=== PATIENT | male | born 1950 | race Caucasian/White ===

== ENCOUNTER 2017-12-08 19:00 | Inpatient (IN) | payer MEDICARE, OTHER ==
[~2017-12-08] VITALS: Ht 170.2 cm; Wt 73.0 kg
[~2017-12-08 19:00] MED LIST: AZITHROMYCIN 2250 MG PO; CEFPODOXIME PR200 M1 PO; CEFTIN 250 MG250 MG PO; CIPRO500 MG PO; CITRUCEL CAPLET1 TA1 PO; FLEXERIL PO; PREDNISONE 10 M10 MG PO; PROTONIX40 M1 PO; PROVENTIL HFA6.7 G1 INH; REGLAN 5 MG TAB5 MG PO; ROXICODONE5 M2 PO; SPIRIVA INH; VENTOLIN HFA 1818 GM INH; ZOFRAN ODT4 MG DISSOLVE
[2017-12-08 19:05] VITALS: BP 136/76
[2017-12-08] MEDS ORDERED: IBUPROFEN 200200 M1 PO (19:12)
[2017-12-08] MEDS ORDERED: CLARITIN10 MG PO (19:12)
[2017-12-08 19:54] LABS: INFLUENZA A ANTIGEN None Detected (None Detect); INFLUENZA B ANTIGEN None Detected (None Detect)
[2017-12-08 20:05] LABS: ABSOLUTE EOSINOPHILS 0.1 thou/uL (0.0-0.7); ABSOLUTE LYMPHOCYTES 1.4 thou/uL (0.8-5.3); ABSOLUTE MONOCYTES 1.5 thou/uL (0.0-1.2); ABSOLUTE NEUTROPHILS 10.2 thou/uL (1.6-8.1); BASOPHILS 0.3 %; HEMATOCRIT 43.7 % (42.0-52.0); LYMPHOCYTES 10.3 %; MCH 33.5 pg (26.0-34.0); MCHC 34.4 g/dL (28.0-37.0); MCV 97.5 fL (80.0-100.0); MONOCYTES 11.6 %; MPV 8.6 fl. (7.2-11.1); NUCLEATED RBCS 0 /100WBC; PLATELET COUNT* 246 thou/uL (150-400); POLYS 76.8 %; RBC 4.48 mil/uL (4.50-6.00); RDW-CV 14.7 % (10.5-14.5); WBC 13.3 thou/uL (4.0-11.0)
[2017-12-08 20:21] LABS: CREATININE 0.8 mg/dL (0.6-1.3); POTASSIUM 3.5 mmol/L (3.5-5.1)
[2017-12-08 20:28] LABS: ALBUMIN 2.4 g/dL (3.4-5.0); TOTAL BILIRUBIN 0.7 mg/dL (<0.1-1.0); TOTAL PROTEIN 6.8 g/dL (6.4-8.2)
[2017-12-08 20:32] LABS: TROPONIN-I LEVEL 0.64 ng/mL (<0.06)
[2017-12-08 23:13] VITALS: BP 126/79
[2017-12-09 00:30] VITALS: BP 134/83
--- NOTE | 2017-12-09 05:02 | NUR ---
PT TO FLOOR AT 2330. A&O X4 CALM COOPERITVE. SR ON THE MONITOR. DENIES PAIN. 3L O2. ADLIB IN ROOM. VITALS WNL. HOURLY ROUNDING FOR SAFETY.
[2017-12-09 10:00] VITALS: BP 118/78
[2017-12-09 11:20] VITALS: BP 117/74
--- NOTE | 2017-12-09 12:40 | NUR ---
ASSUMED PT CARE AT 0700 PT IS ALERT AND ORIENTED X 4 PT IS UP AD TOMMY PT IS NOT A FALL RISK, PT DENIES PAIN OR SOA, PT IS NPO FOR STRESS TEST [facility] CALLED AND STATED PT CAN HAVE LIGHT BREAKFAST BEFORE 1000 WHICH DIETARY BROUGHT TO PT AND PT WAS EDUCATED THAT HE COULD EAT BREAKFAST AND AFTER BREAKFAST COULD NOT EAT OR DRINK ANYTHING FOR STRESS TEST PT STATES UNDERSTANDING, TRAY WAS PROVIDED BY DIETARY TO PT EVEN THOUGH NPO SIGN ON DOOR PT ATE AND DRANK ICED TEA THIS NURSE WALKED IN ON PT EATING AND STOPPED PT EATING FURTHER UNTIL THIS NURSE TALKED WITH NUCLEAR MEDICINE THIS NURSE SPOKE WITH NUCLEAR MEDICINE WHO STATES THAT PT CAN DO RESTING IMAGES BUT STRESS PORTION WILL BE TOMORROW THIS NURSE NOTIFIED PT WHO STATES UNDERSTANDING PT CAN CONTINUE TO EAT NO NITRATES BETA BLOCKERS OR CAFFINE BE GIVEN UNTIL AFTER STRESS TEST TOMORROW, WILL CONTINUE TO MONITOR
--- NOTE | 2017-12-09 15:07 | 2DMMODE ---
[place] [address] 2 D/M-MODE ECHOCARDIOGRAM Name: TOM CORNEJO Room: [address] IN [facility]#: [id number] Admission: 12/08/17 Attend Phys: Sylvia Holguin, Discharge: Date of : 50 Date of Service: 12/09/17 1507 Report #: [id number] THIS REPORT FOR: //name// APPROVED REPORT Study performed: 12/09/2017 10:31:40 EXAM: Comprehensive 2D, Doppler, and color-flow Echocardiogram Patient Location: In-Patient Room #: 218 Status: routine BSA: 1.83 HR: 94 bpm BP: 134/83 mmHg Rhythm: NSR Other Information Study Quality: Good Indications Dyspnea Elevated Troponin 2D Dimensions LVEF(%): 78.48 (>50%) IVSd: 10.64 (7-11mm) LVOT Diam: 22.34 (18-24mm) LVDd: 41.53 mm PWd: 7.60 (7-11mm) Ascending Ao: 31.20 (22-36mm) LVDs: 22.14 (25-40mm) Aortic Root: 34.78 mm Brenner's LVEF: 78.48 % Volumes Left Atrial Volume (Systole) LA ESV Index: 28.00 mL/m2 Aortic Valve AoV Peak Cayden.: 1.25 m/s AO Peak Gr.: 6.22 mmHg LVOT Max P.46 mmHg AO Mean Gr.: 3.83 mmHg LVOT Mean P.16 mmHg LVOT Max V: 1.06 m/s AO V2 VTI: 21.93 cm LVOT Mean V: 0.68 m/s JAVIER (VTI): 3.20 cm2 LVOT V1 VTI: 17.94 [place] [address] 2 D/M-MODE ECHOCARDIOGRAM Name: TOM CORNEJO Room: [address] IN .R.#: [id number] Admission: 12/08/17 Attend Phys: Sylvia Holguin, Discharge: Date of : 50 Date of Service: 12/09/17 1507 Report #: [id number] E/A Ratio: 1.14 MV Decel. Time: 236.20 ms MV E Max Cayden.: 0.78 m/s MV PHT: 68.50 ms MVA (PHT): 3.21 cm2 TDI E/Lateral E': 8.67 E/Medial E': 7.09 Medial E' Cayden.: 0.11 m/s Lateral E' Cayden.: 0.09 m/s Pulmonary Valve PV Peak Cayden.: 0.88 m/s PV Peak Gr.: 3.10 mmHg Tricuspid Valve TR Peak Gr.: 36.36 mmHg RVSP: 41.00 mmHg Left Ventricle The left ventricle is normal size. There is normal LV segmental wall motion. There is normal left ventricular wall thickness. Left ventricular systolic function is normal. The left ventricular ejection fraction is within the normal range. LVEF is 60-65%. The left ventricular diastolic function is normal. Right Ventricle The right ventricle is normal size. The right ventricular systolic function is normal. Atria The left atrium size is normal. The right atrium size is normal. Aortic Valve The aortic valve is normal in structure. No aortic regurgitation is present. There is no aortic valvular stenosis. Mitral Valve The mitral valve is normal in structure. Trace mitral regurgitation. No evidence of mitral valve stenosis. Tricuspid Valve The tricuspid valve is normal in structure. Moderate tricuspid regurgitation. The RVSP is 40-45 mmHg. Pulmonic Valve The pulmonary valve is normal in structure. There [place] [address] 2 D/M-MODE ECHOCARDIOGRAM Name: TOM CORNEJO Room: [address] IN [facility]#: [id number] Admission: 12/08/17 Attend Phys: Sylvia Holguin, Discharge: Date of : 50 Date of Service: 12/09/17 1507 Report #: [id number] valvular regurgitation. Great Vessels The aortic root is normal in size. IVC is normal in size and collapses with >50% inspiration Pericardium There is no pericardial effusion. <Conclusion> The left ventricle is normal size. There is normal left ventricular wall thickness. Left ventricular systolic function is normal. The left ventricular ejection fraction is within the normal range. LVEF is 60-65%. The left ventricular diastolic function is normal. The right ventricle is normal size. The left atrium size is normal. The aortic valve is normal in structure. The mitral valve is normal in structure. Trace mitral regurgitation. The tricuspid valve is normal in structure. Moderate tricuspid regurgitation. The RVSP is 40-45 mmHg. IVC is normal in size and collapses with >50% inspiration There is normal LV segmental wall motion. <ELECTRONICALLY SIGNED> By: Paco Yen MD, FACC 12/09/17 1507 1507 1507 Paco Yen MD, FACC /INF
--- NOTE | 2017-12-09 15:16 | EKG ---
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
--- NOTE | 2017-12-09 15:18 | EKG ---
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1950 Requested By: Christiane Guerrero Order Number: [id number] MD: Paco Yen Measurements Intervals [place] Rate: 99 P: 68 DE: 131 QRS: 40 QRSD: 115 T: 23 QT: 358 QTc: 460 Interpretive Statements Sinus rhythm Probable left atrial enlargement Incomplete right bundle branch block Borderline low voltage, extremity leads Compared to ECG 12/16/2016 21:04:35 Incomplete right bundle-branch block now present Electronically Signed On 12-09-2017 15:17:54 CDT by Paco Yen [email or web address] <ELECTRONICALLY SIGNED> By: Paco Yen MD, [facility] 12/09/17 1517 06 06 Paco Yen MD, [facility] /EPI
--- NOTE | 2017-12-09 15:22 | NUR ---
RT in with Pt, CM to f/u later
[2017-12-09 15:30] VITALS: BP 125/67
[2017-12-09 19:40] VITALS: BP 135/81
[2017-12-10] VITALS: BP 118/67
[2017-12-10 04:00] VITALS: BP 102/74
--- NOTE | 2017-12-10 05:59 | NUR ---
A&O X4 CALM COOPERITVE. ADLIB IN ROOM. SR- ST ON THE MONITOR. 3L O2. DENIES PAIN. NPO AT 0000. FLUIDS. HOURLY ROUNDING FOR SAFETY. VITALS WNL.
[2017-12-10 06:02] LABS: CALCIUM 8.4 mg/dL (8.5-10.1); CREATININE 0.7 mg/dL (0.6-1.3)
[2017-12-10 06:46] LABS: HEMATOCRIT 42.2 % (42.0-52.0); HEMOGLOBIN 13.9 gm/dL (14.0-18.0); MCH 32.5 pg (26.0-34.0); MCHC 32.8 g/dL (28.0-37.0); MPV 8.8 fl. (7.2-11.1); NUCLEATED RBCS 0 /100WBC; PLATELET COUNT* 294 thou/uL (150-400); RBC 4.26 mil/uL (4.50-6.00); RDW-CV 15.2 % (10.5-14.5); WBC 21.1 thou/uL (4.0-11.0)
[2017-12-10 07:29] LABS: ABSOLUTE LYMPHOCYTES 1.5 thou/uL (0.8-5.3); ABSOLUTE MONOCYTES 0.8 thou/uL (0.0-1.2); ABSOLUTE NEUTROPHILS 18.8 thou/uL (1.6-8.1); PLATELET ESTIMATE ADEQUATE
[2017-12-10 07:30] LABS: ANISOCYTOSIS 1+; POIKILOCYTOSIS 1+
[2017-12-10 09:00] VITALS: BP 132/75
--- NOTE | 2017-12-10 11:42 | NUR ---
ASSUMED PT CARE AT 0700 PT IS ALERT AND ORIENTED X 4 PT IS UP AD TOMMY PT IS NOT A FALL RISK PT IS NPO FOR STRESS TEST, PT IS GETTING IV ANTIBIOTICS, PT IS ST ON THE MONITOR, PHYSICIAN STATED THAT EVEN IF STRESS IS NEGATIVE PT IS NOT DISCHARGING HE NEEDS TO STAY DUE TO PNEUMONIA, WILL CONTINUE TO MONITOR
[2017-12-10 12:00] VITALS: BP 159/83
--- NOTE | 2017-12-10 13:57 | NUR ---
CM ASSESSMENT: Pt is A&O. Resides at home alone. Independent with ADLs. No DME. Hx of [facility]. Hx of acute rehab. Stress today. Currently has PNA, no dc today for tx of PNA. Goal is to return home once medically stable. Following.
[2017-12-10 16:00] VITALS: BP 153/90
--- NOTE | 2017-12-10 16:02 | CARDNUC ---
[place] [address] CARDIAC NUCLEAR IMAGING REPORT Name: TOM CORNEJO Room: [address] IN [facility]#: [id number] Admission: 12/08/17 Attend Phys: Sylvia Holguin, Discharge: Date of : 50 Date of Service: 12/10/17 1602 Report #: [id number] THIS REPORT FOR: //name// APPROVED REPORT Study performed: 12/09/2017 09:06:00 Exam: Nuclear Stress Test Indication: Dyspnea, elevated troponin Patient Location: In-Patient Room #: 218 Stress Tech: Flor Alvarez Stress Nurse: Vita Ibarra RN Ht: 5 ft 7 in Wt: 159 lbs BSA: 1.83 m2 BMI: 24.9 Medical History Medical History: COPD, HTN, Smoking Medications: No cardiac medications Allergies: hydrocodone Cardiac Risk Factors: Age, FHX of CAD, HTN, Smoking Exercise History: Sedentary NM EXAM: Myocardial Perfusion REST/STRESS Imaging Protocol: Rest Tc-99m/Stress Tc-99m 2 days Resting Data Rest SPECT myocardial perfusion imaging was performed in supine position 45 minutes following the intravenous injection of 11.8 mCi of Tc-99m Sestamibi. Time of rest injection: 1300 Date: 12/09/2017 The images were gated to evaluate regional wall motion and calculate left ventricular ejection fraction. Administration Route: IV Pharmacologic Stress Pharmacologic stress test was performed by injecting Regadenoson 0.4 mg IV push followed by the intravenous injection of 33.8 mCi of Tc-99m Sestamibi. Time of stress injection: 1125 Date: 12/10/2017 Administration Route: IV Administration Site: Right AC Gated Stress SPECT was performed 45 [place] [address] CARDIAC NUCLEAR IMAGING REPORT Name: TOM CORNEJO Room: [address] IN [facility]#: [id number] Admission: 12/08/17 Attend Phys: Sylvia Holguin, Discharge: Date of : 50 Date of Service: 12/10/17 1602 Report #: [id number] The images were gated to evaluate regional wall motion and calculate left ventricular ejection fraction. Prone imaging was performed. Study Quality Study: Good Artifact: No artifact Study Data At rest, the left ventricular ejection fraction was 77%.. Post stress, the left ventricular ejection was 73%.. TID = 1.01. Perfusion Normal left ventricular perfusion. Wall Motion Normal left ventricular wall motion. Nuclear Conclusion ECG Findings: negative for ischemia Clinical Findings: negative for ischemia Nuclear Findings: negative for ischemia Exercise Capacity: not assessed Left Ventricular Function: normal Risk Study: low Myocardial perfusion images show no defect to suggest infarct or ischemia. Left ventricular systolic function was normal on gated studies. This is a low risk study. Interpreted by: Vasyl Lopez M.D. [facility] Electronically Approved: 12/10/2017 16:02:30 Stress Test Details Stress Test: Pharmacologic stress testing performed using 0.4 mg of regadenoson per 5 mL given IV over 10 seconds. Reason for pharmacologic stress test: physical limitation. HR Resting HR: 97 bpm Max Heart Rate (APMHR): 153 bpm Max HR Achieved: 109 bpm Target HR (85% APMHR): 130 bpm % of APMHR: 71 Recovery HR: 105 bpm BP Resting BP: 129/82 [place] [address] CARDIAC NUCLEAR IMAGING REPORT Name: TOM CORNEJO Room: [address]#: [id number] Admission: 12/08/17 Attend Phys: Sylvia Holguin, Discharge: Date of : 50 Date of Service: 12/10/17 1602 Report #: [id number] Max BP: 112/69 mmHg ECG Resting ECG: Sinus Rhythm, normal EKG Stress ECG: Sinus Rhythm, normal EKG ST Change: None Arrhythmia: None Recovery ECG: Sinus Rhythm, normal EKG Recovery ST Change: None Recovery Arrhythmia: None Clinical Reason for Termination: Completed protocol Stress Symptoms: None Exercise duration: 0 min sec Exercise capacity: 1.0 METs The patient had no significant symptoms with Lexiscan infusion. Stress ECG Conclusion The baseline 12-lead EKG showed sinus rhythm without significant ST or T wave abnormality. EKGs obtained during and post Lexiscan infusion showed sinus rhythm with no significant ST or T wave changes when compared to baseline. There were no stress-induced arrhythmias. <Conclusion> The baseline 12-lead EKG showed sinus rhythm without significant ST or T wave abnormality. EKGs obtained during and post Lexiscan infusion showed sinus rhythm with no significant ST or T wave changes when compared to baseline. There were no stress-induced arrhythmias. <ELECTRONICALLY SIGNED> By: Vasyl Lopez MD, FACC 12/10/17 1602 160 1602 Vasyl Lopez MD, FACC /INF
[2017-12-10 20:00] VITALS: BP 130/70
[2017-12-11 00:02] VITALS: BP 164/91
--- NOTE | 2017-12-11 03:20 | NUR ---
PT ALERT ORIENTED. MS STATUS. NOT MONITORED UP AD TOMMY IN ROOM. COUGHING UP ROLDAN THICK SPUTUM. O2 AT 3 LITERS NC. NS AT 100MLS/HR. WILL CONTINUE TO ASSESS.
[2017-12-11 05:39] LABS: ABSOLUTE EOSINOPHILS 0.1 thou/uL (0.0-0.7); ABSOLUTE LYMPHOCYTES 2.1 thou/uL (0.8-5.3); ABSOLUTE MONOCYTES 1.8 thou/uL (0.0-1.2); BASOPHILS 0.1 %; EOSINOPHILS 0.3 %; HEMATOCRIT 41.6 % (42.0-52.0); HEMOGLOBIN 13.6 gm/dL (14.0-18.0); LYMPHOCYTES 11.7 %; MCH 32.3 pg (26.0-34.0); MCHC 32.7 g/dL (28.0-37.0); MCV 98.9 fL (80.0-100.0); MONOCYTES 10.1 %; MPV 8.3 fl. (7.2-11.1); NUCLEATED RBCS 0 /100WBC; PLATELET COUNT* 326 thou/uL (150-400); POLYS 77.8 %; RBC 4.21 mil/uL (4.50-6.00); RDW-CV 15.2 % (10.5-14.5)
[2017-12-11 05:58] LABS: ALBUMIN 2.2 g/dL (3.4-5.0); CALCIUM 8.7 mg/dL (8.5-10.1); CREATININE 0.7 mg/dL (0.6-1.3); POTASSIUM 4.1 mmol/L (3.5-5.1); TOTAL BILIRUBIN 0.3 mg/dL (<0.1-1.0); TOTAL PROTEIN 5.9 g/dL (6.4-8.2)
[2017-12-11 07:50] VITALS: BP 154/80
--- NOTE | 2017-12-11 11:19 | NUR ---
RECEIVED REPORT AND ASSUMED CARE AT 0730. VSS. PT M/S STATUS. VITAL SIGNS AND ASSESSMENT COMPLETED AND CHARTED. PT ON 4L O2 NC. PT DENIES COMPLAINTS OF PAIN. PT UP AD TOMMY IN ROOM. DISCUSSED PLAN OF CARE WITH PT. PT VERBALIZES UNDERSTANDING. PT TRX TO 3WEST, REPORT GIVEN, PT MOVED TO NEW ROOM.
--- NOTE | 2017-12-11 11:38 | NUR ---
PATIENT WAS TRANSFERRED UP HERE FROM [facility] IN STABLE CONDITION. PATIENT IS ALERT AND ORIENTED. 4 LITERS OF OXYGEN THROUGH NASAL CANNULA. ORIENTED TO ROOM, CALL LIGHT IS IN REACH AND QUESTIONS ANSWERED FOR PATIENT. WILL CONTINUE TO MONITOR.
[2017-12-11 16:45] VITALS: BP 155/101
--- NOTE | 2017-12-11 17:22 | NUR ---
PATIENT HAS BEEN ALERT AND ORIENTED TODAY VERY PLEASANT. UP AD TOMMY IN ROOM, WITH OXYGEN TUBING EXTENSION. NO COMPLAINTS OF PAIN TODAY. OXYGEN RUNNING AT 4 LITERS THROUGH NASAL CANNULA. CALL LIGHT IS IN REACH, WILL CONTINUE TO MONITOR.
[2017-12-11 20:05] VITALS: BP 158/88
[2017-12-12 00:41] VITALS: BP 132/75
--- NOTE | 2017-12-12 04:43 | NUR ---
PATIENT ALERT AND ORIENTED. VITALS STABLE. ON 3.5 LITERS OF OXYGEN. PRODUCTIVE COUGH. UP INDEPENDENTLY. IV PATENT, SALINE LOCKED. HOURLY ROUNDS. INSTRUCTED TO CALL FOR ASSISTANCE. NURSING WILL CONTINUE TO MONITOR.
[2017-12-12 05:32] LABS: CALCIUM 8.5 mg/dL (8.5-10.1); CREATININE 0.8 mg/dL (0.6-1.3); POTASSIUM 4.2 mmol/L (3.5-5.1)
[2017-12-12 05:38] LABS: HEMATOCRIT 42.4 % (42.0-52.0); HEMOGLOBIN 14.3 gm/dL (14.0-18.0); MCH 32.8 pg (26.0-34.0); MCHC 33.8 g/dL (28.0-37.0); MCV 97.2 fL (80.0-100.0); MPV 8.5 fl. (7.2-11.1); RBC 4.36 mil/uL (4.50-6.00); WBC 11.7 thou/uL (4.0-11.0)
[2017-12-12 10:14] VITALS: BP 115/71
[2017-12-12 15:47] VITALS: BP 135/76
--- NOTE | 2017-12-12 17:37 | NUR ---
PATIENT IS ALERT AND ORIENTED VERY PLEASANT. NO COMPLAINTS OF PAIN, UP AD TOMMY IN ROOM WITH OXYGEN EXTENSION. VITAL SIGNS STABLE ON 3.5 LITERS OF OXYGEN THROUGH NASAL CANNULA. IV IN RIGHT FOREARM WORKWS WELL FOR ANTIBIOTICS AND STEROIDS. WILL CONTINUE TO MONITOR.
[2017-12-12 21:00] VITALS: BP 155/89
--- NOTE | 2017-12-13 05:19 | NUR ---
PT SLEPT ON AND OFF THROUGH THE NIGHT. ASSESSMENT DOCUMENTED. MEDS GIVEN PER E-NOV. NO REPORTS OF PAIN OR NAUSEA. IV PATENT. PT WORE CONTINOUS PULSE OX THROUGH NIGHT. NO CONCERNS AT THIS TIME, WILL CONTINUE WITH PLAN OF CARE.
[2017-12-13 07:45] VITALS: BP 130/77
[2017-12-13] MEDS ORDERED: MUCINEX600 MG PO (10:27)
[2017-12-13] MEDS ORDERED: CEFDINIR300 MG PO (10:27)
[2017-12-13] MEDS ORDERED: PREDNISONE 10 M10 MG PO (10:27)
[2017-12-13] MEDS ORDERED: AZITHROMYCIN 2250 MG PO (10:27)
[2017-12-13 11:44] VITALS: BP 130/77
[2017-12-13 11:50] VITALS: BP 130/77
[2017-12-13 12:50] VITALS: BP 130/77
--- NOTE | 2017-12-13 13:23 | NUR ---
DEMETRA SPOKE TO THE RN IN-CHARGE OF THE PATIENT AND SHE INFORMS THAT THE PATIENT WILL DISCHARGE TODAY AND NEEDS HOME O2. CHLOE CONTACTED [facility] [place] TO INFORM OF THE DME ORDER, AND FAXED PATIENTS FACESHEET, H&P, AND O2 ORDER. KEVEN WITH JONEL RETURNED CALL AND INFORMS THAT THE PATIENT QUALIFIES FOR O2 AND A TANK WILL BE DELIVERED TO THE PATIENTS ROOM. CM INFORMED THE PATIENT AND RN OF THIS INFO. PATIENT AND RN IN AGREEMENT. CM WILL REMAIN AVAILABLE TO ASSIST AND FOLLOW NEEDED.
[2017-12-13 14:17] VITALS: BP 130/77
--- NOTE | 2017-12-13 14:18 | NUR ---
PATIENT HAS BEEN ALERT AND ORIENTED TODAY VERY PLEASANT. VITAL SIGNS STABLE ON ROOM AIR AND ON 2 LITERS OF OXYGEN THROUGH NASAL CANNULA WITH ACTIVITY. PATIENT HAS BEEN UP AD TOMMY IN ROOM WITH OXYGEN EXTENSION TUBING. NO COMPLAINTS OF ANY PAIN TODAY. PATIENT IS BEING DISCHARGED HOME WITH OXYGEN. LEFT VIA WHEELCHAIR TO GO HOME.
== END 2017-12-13 13:50 | disposition home or self-care (01) | DRG 871 ==
LOC: M.ERS 19:00 → M.2W 21:09 → M.TBA-ER 21:09 → M.2W 23:14 → M.3W 12-11 11:16
PROVIDERS: Emergency Medicine; Internal Medicine; Nurse Practitioner Family; ADMIT Internal Medicine
DX: A41.9 Sepsis, unspecified organism (principal); J15.6 Pneumonia due to other Gram-negative bacteria; J96.21 Acute and chronic respiratory failure with hypoxia; J44.1 Chronic obstructive pulmonary disease with (acute) exacerbation; K57.90 Diverticulosis of intestine, part unspecified, without perforation or abscess without bleeding; F17.210 Nicotine dependence, cigarettes, uncomplicated; I10 Essential (primary) hypertension; Z88.6 Allergy status to analgesic agent; Z79.899 Other long term (current) drug therapy

== ENCOUNTER → 2017-12-28 | Outpatient (CLI) | payer MEDICARE, OTHER ==
[~2017-12-28] MED LIST changes: +CEFDINIR300 MG PO; +CLARITIN10 MG PO; +IBUPROFEN 200200 M1 PO; +MUCINEX600 MG PO
== END ==
LOC: M.RAD 14:23
DX: J18.9 Pneumonia, unspecified organism (principal)